=== PATIENT | male | born 1970 | race Two or more races ===

== ENCOUNTER 2022-07-17 13:46 | Inpatient (IN) | payer OTHER ==
[~2022-07-17] VITALS: Ht 175.3 cm; Wt 112.1 kg
[2022-07-17 05:00] VITALS: BP 115/71
[2022-07-17] MEDS ORDERED: ONDANSETRON HCL 4 MG/2 ML VIAL IV PRN (15:15)
[2022-07-17] MEDS ORDERED: MORPHINE SULFATE 4 MG/ML SYR/VIAL IV PRN (15:15)
[2022-07-17 16:00] LABS: Hematocrit 42.5 % (41.0-53.0); Hemoglobin 14.3 g/dL (13.5-17.5); Mean Corpuscular Hemoglobin 31.1 pg (28.0-32.0); Mean Corpuscular Hgb Conc. 33.7 g/dL (32.0-36.0); Mean Corpuscular Volume 92.1 fL (80.0-100.0); Red Blood Cells 4.61 10^6/uL (4.5-5.90); Red Cell Distribution Width 15.6 % (11.8-14.3)
[2022-07-17 16:01] LABS: Albumin 4.2 g/dL (3.4-5.0); BUN/Creatinine Ratio 17.9 (10.0-20.0); Calcium 9.3 mg/dL (8.5-10.1); Potassium 4.1 mmol/L (3.5-5.1)
[2022-07-17 16:03] LABS: Bilirubin, Total 0.6 mg/dL (0.2-1.0); Total Protein 8.8 g/dL (6.4-8.2)
[2022-07-17 16:07] LABS: Band Neutrophils % (manual) 0; Basophils % (manual) 0 (0.0-2.0); Blast Cells 0; Metamyelocytes % 0; Myelocytes % 0; Promyelocytes % 0; Reactive Lymphocytes 0
[2022-07-17 16:17] LABS: INR 3.97 (0.9-1.15); Partial Thromboplastin Time 43.9 sec (24.6-33.4)
[2022-07-17 16:29] LABS: Eosinophils % (manual) 1 (0-7); Lymphocytes % (manual) 23 (10.0-50.0); Monocytes % (manual) 3 (0-12)
[2022-07-17] MEDS ORDERED: ENO40SY SUBCUT (20:01)
[2022-07-17] MEDS ORDERED: MET50T PO (20:02)
[2022-07-17] MEDS ORDERED: FLEC100T PO (20:02)
[2022-07-17 22:00] VITALS: BP 123/83
[2022-07-18 05:01] LABS: Urine Bacteria NONE SEEN /hpf (None Seen); Urine Blood Negative /uL (Negative); Urine Mucus FEW (None Seen); Urine Specific Gravity 1.034 (1.001-1.035); Urine WBC 4 /hpf (0 - 3)
[2022-07-18 09:00] VITALS: BP 135/74
[2022-07-18 09:27] LABS: INR 1.14 (0.9-1.15); Partial Thromboplastin Time 29.1 sec (24.6-33.4)
[2022-07-18] MEDS: ENOXAPARIN SOD 40 MG/0.4 ML SYRINGE SC SCH (10:00)
[2022-07-18] MEDS ORDERED: BUPIVACAINE 0.25% INJ 50ML VIAL ONE (10:29)
[2022-07-18] MEDS ORDERED: VANCOMYCIN HCL 1000 MG VL ONE (10:31)
[2022-07-18] MEDS ORDERED: ceFAZolin 1GM/50ML 100 ML IV ONE (10:34)
[2022-07-18] MEDS ORDERED: KETOROLAC TROMETH 30 MG/ML 1ML VIAL ONE (10:47)
[2022-07-18] MEDS ORDERED: MEPERIDINE HCL (50 MG/ML) 1 ML VIAL ONE (10:55)
[2022-07-18] MEDS ORDERED: fentaNYL CITRATE 100 MCG/2 ML VL ONE (10:55)
[2022-07-18] MEDS ORDERED: MIDAZOLAM HCL 2MG/2ML 2ml VIAL (1mg/ml) ONE (10:55)
[2022-07-18] MEDS ORDERED: PROPOFOL 10 MG/ML 20 ML IV ONE (11:24)
[2022-07-18] MEDS ORDERED: DexAMETHasone SOD PHOS 10MG/1ML VIAL INJ ONE (11:24)
[2022-07-18] MEDS ORDERED: ONDANSETRON HCL 4 MG/2 ML VIAL ONE (11:24)
[2022-07-18] MEDS ORDERED: ePHEDrine SULFATE 50 MG/ML AMP IV PRN (12:00)
[2022-07-18] MEDS ORDERED: MORPHINE SULFATE 4 MG/ML SYR/VIAL IV PRN (12:00)
[2022-07-18] MEDS ORDERED: ONDANSETRON HCL 4 MG/2 ML VIAL IV PRN (12:00)
[2022-07-18] MEDS ORDERED: LABETALOL HCL 5 MG/ML 4ML SYRINGE IV PRN (12:00)
[2022-07-18] MEDS ORDERED: KETOROLAC TROMETH 30 MG/ML 1ML VIAL IV ONE (12:00)
[2022-07-18] MEDS ORDERED: MIDAZOLAM HCL 2MG/2ML 2ml VIAL (1mg/ml) IV PRN (12:00)
[2022-07-18] MEDS: HYDROmorphone HCL 2 MG/ML VL/or syr IV PRN ×3 (12:40→13:13)
[2022-07-18] MEDS ORDERED: ROPIVACAINE 0.5% (5MG/ML) 20ML AMPULE IJ ONE (13:41)
[2022-07-18] MEDS ORDERED: ceFAZolin 2 GM/D5W100ml 100 ML IV SCH (14:00)
[2022-07-18 14:50] VITALS: BP 121/64
[2022-07-18 17:00] VITALS: BP 117/56
[2022-07-18] MEDS: FLECAINIDE ACETATE 50 MG TAB PO SCH (21:19)
[2022-07-18] MEDS: MIRTAZAPINE 30 MG TAB PO SCH (21:20)
[2022-07-18] MEDS: METOPROLOL TARTRATE 50 MG TAB PO SCH (21:24)
[2022-07-18 22:00] VITALS: BP 121/71
[2022-07-19] MEDS: ceFAZolin 2 GM/D5W100ml 100 ML IV SCH ×2 (02:52→10:50)
[2022-07-19 05:00] VITALS: BP 121/69
[2022-07-19 09:00] VITALS: BP 121/48
[2022-07-19 09:19] VITALS: BP 121/48
[2022-07-19] MEDS: ENOXAPARIN SOD 40 MG/0.4 ML SYRINGE SC SCH (10:50)
[2022-07-19] MEDS: FLECAINIDE ACETATE 50 MG TAB PO SCH ×2 (10:51→21:55)
[2022-07-19] MEDS: METOPROLOL TARTRATE 50 MG TAB PO SCH ×2 (11:29→21:56)
[2022-07-19] MEDS: LOSARTAN POTASSIUM 50 MG TAB PO SCH (11:29)
[2022-07-19 13:00] VITALS: BP 137/89
[2022-07-19] MEDS: HYDROcodone-ACET 10/325MG TAB PO PRN ×2 (15:05→21:55)
[2022-07-19 16:38] VITALS: BP 136/70
[2022-07-19] MEDS: MIRTAZAPINE 30 MG TAB PO SCH (21:59)
[2022-07-19 22:00] VITALS: BP 112/63
[2022-07-20 05:00] VITALS: BP 130/74
[2022-07-20] MEDS: HYDROcodone-ACET 10/325MG TAB PO PRN (07:46)
[2022-07-20 09:00] VITALS: BP 111/76
[2022-07-20] MEDS ORDERED: traMADol HCL 50 MG TAB PO PRN (09:00)
[2022-07-20] MEDS: ENOXAPARIN SOD 40 MG/0.4 ML SYRINGE SC SCH (10:08)
[2022-07-20] MEDS: FLECAINIDE ACETATE 50 MG TAB PO SCH (10:09)
[2022-07-20] MEDS: METOPROLOL TARTRATE 50 MG TAB PO SCH (10:14)
[2022-07-20] MEDS: LOSARTAN POTASSIUM 50 MG TAB PO SCH (10:15)
[2022-07-20 10:56] VITALS: BP 152/66
[2022-07-20] MEDS ORDERED: traMADol HCL 50 MG TAB PO ONE (14:00)
== END 2022-07-20 12:30 | DRG 502 ==
LOC: EEVIPCON 13:46 → EDBD 13:46 → ER 13:46 → OVERFLOW 15:13 → CENTRAL 18:01 → WEST WING 07-19 05:10
PROVIDERS: ADMIT Internal Medicine; ATTEND Internal Medicine
PROC: 0LQR0ZZ Repair Left Knee Tendon, Open Approach (ICD-10-PCS; principal; 2022-07-18 11:02)
DX: S76.112A Strain of left quadriceps muscle, fascia and tendon, initial encounter (principal); I10 Essential (primary) hypertension; F41.9 Anxiety disorder, unspecified; F32.A Depression, unspecified; I48.91 Unspecified atrial fibrillation; W18.39XA Other fall on same level, initial encounter; Y93.02 Activity, running; Z90.49 Acquired absence of other specified parts of digestive tract; Z79.899 Other long term (current) drug therapy; Y93.67 Activity, basketball; Y99.8 Other external cause status
CPT/HCPCS: 36415; 71045; 73560; 73700; 73721; 80053; 81001; 85007; 85027; 85610; 85730; 86850; 86900; 86901; 93005; 96374; G0378; J0690; J1100; J1885; J2250; J2405; J2704; J3490